=== PATIENT | female | born 1980 | race Caucasian/White ===

== ENCOUNTER 2019-02-09 15:12 | Outpatient (CLI) | payer OTHER | END 2019-02-09 20:29 | disposition home or self-care (01) | LOC: NST 15:12 | DX: Z34.82 Encounter for supervision of other normal pregnancy, second trimester (principal) ==

== ENCOUNTER 2019-04-28 13:06 | Inpatient (IN) | payer OTHER ==
[~2019-04-28] VITALS: Ht 162.6 cm; Wt 75.3 kg
[2019-05-22] MEDS ORDERED: PRENATAL PLUS-1 EACH PO (07:45)
== END 2019-05-24 12:39 | disposition home or self-care (01) | DRG 768 ==
LOC: OB/GYN 05-16 12:57 → LDR 05-22 06:17 → OB/GYN 05-22 15:37
PROVIDERS: ADMIT Obstetrics & Gynecology Maternal & Fetal Medicine
PROC: 10E0XZZ Delivery of Products of Conception, External Approach (ICD-10-PCS; principal; 2019-05-22)
PROC: 0DQR0ZZ Repair Anal Sphincter, Open Approach (ICD-10-PCS; 2019-05-22)
PROC: 0W8NXZZ Division of Female Perineum, External Approach (ICD-10-PCS; 2019-05-22)
PROC: 10907ZC Drainage of Amniotic Fluid, Therapeutic from Products of Conception, Via Natural or Artificial Opening (ICD-10-PCS; 2019-05-22)
PROC: 3E033VJ Introduction of Other Hormone into Peripheral Vein, Percutaneous Approach (ICD-10-PCS; 2019-05-22)
PROC: 4A1HXCZ Monitoring of Products of Conception, Cardiac Rate, External Approach (ICD-10-PCS; 2019-05-22)
DX: O70.21 Third degree perineal laceration during delivery, IIIa (principal); Z37.0 Single live birth; Z3A.40 40 weeks gestation of pregnancy

== ENCOUNTER 2019-05-18 11:33 | Outpatient (CLI) | payer OTHER | END 2019-05-18 12:26 | disposition home or self-care (01) | LOC: NST 11:33 | DX: Z34.83 Encounter for supervision of other normal pregnancy, third trimester (principal) ==

== ENCOUNTER 2019-05-21 14:07 | Outpatient (CLI) | payer OTHER ==
[2019-05-22] MEDS ORDERED: PRENATAL PLUS-1 EACH PO (07:45)
== END 2019-05-21 15:42 | disposition home or self-care (01) ==
LOC: NST 14:07
DX: Z34.83 Encounter for supervision of other normal pregnancy, third trimester (principal)